=== PATIENT | female | born 1995 | race Caucasian/White ===

== ENCOUNTER 2023-07-08 15:55 | Emergency (ER) | payer BC, SELFPAY ==
[2023-07-08 16:06] VITALS: BP 154/86; PULSE 99; RESP 20; TEMP 37.7; O2SAT 100
--- NOTE | 2023-07-08 16:40 | ED.URI ---
HPI - URI/Sore Throat General Chief Complaint: Upper Respiratory Infection Stated Complaint: Sore Throat Time Seen by Provider: 07/08/23 16:45 History of Present Illness HPI Narrative: 28 y/o female presented for c/o sore throat. Onset yesterday. denies any associated symptoms. She is not taking anything for symptoms. Related Data Allergies Allergy/AdvReac Type Severity Reaction Status Date / Time No Known Allergies Allergy Verified 07/08/23 16:51 Review of Systems Review of Systems: CONSTITUTIONAL: Denies body aches, fever, chills, or sweats. EYES: Denies visual changes, redness, or discharge. ENT: reports sore throat Denies rhinorrhea, congestion, or otalgia. CARDIOVASCULAR: Denies chest pain, palpitations, or edema. RESPIRATORY: Denies dyspnea. GASTROINTESTINAL: Denies abdominal pain, nausea, vomiting, or diarrhea. SKIN: Denies rash, itching, or wounds. MUSCULOSKELETAL: Denies back pain, joint pain, or myalgia. NEUROLOGIC: Denies headache PMF Past Medical History Medical History (Updated 07/08/23 @ 16:53 by Debra Donaldson, CONTR[employer]STRU[employer]) No pertinent past medical history Exam Narrative: GENERAL: mildly Ill-appearing, no acute distress. EYES: conjunctivae clear ENT: Mucous membranes moist. TM pearly figueroa with normal light reflex bilaterally; no tragal tenderness. Oropharynx erythematous Tonsils enlarged 2+ with exudate. No drooling, no hoarseness, no trismus, uvula midline. No tripod positioning, hot potato voice, or soft palate swelling. NECK: Supple. No lymphadenopathy CHEST: Clear to auscultation, breath sounds equal. No respiratory distress, speaks in full sentences. HEART: Regular rate and rhythm. No murmur heard. SKIN: Warm, dry, no rash. NEURO: Alert and oriented x3. Course Course Emergency Course: Patient is aware of diagnosis, understands and agrees to treatment plan. Anticipatory guidance given. Patient agrees to follow-up as directed and is aware of reasons to seek care at the emergency department. Portions of this record may have been created with voice recognition software Level of Care: Express Care Visit Vital Signs Vital signs: Vital Signs Temperature 99.8 F H 07/08/23 16:06 Pulse Rate 99 07/08/23 16:06 Respiratory Rate 20 07/08/23 16:06 Blood Pressure 154/86 H 07/08/23 16:06 Pulse Oximetry 100 07/08/23 16:06 Oxygen Delivery Room Air 07/08/23 16:06 Temperature 99.8 F H 07/08/23 16:06 Pulse Rate 99 07/08/23 16:06 Respiratory Rate 20 07/08/23 16:06 Blood Pressure 154/86 H 07/08/23 16:06 Pulse Oximetry 100 07/08/23 16:06 Oxygen Delivery Room Air 07/08/23 16:06 MDM - URI/Sore Throat MDM Narrative Medical decision making narrative: Neg strep result reviewed with pt. Will treat for strep based on PE and CC. Advise supportive treatments. Patient is appropriate for outpatient treatment and follow-up. Differential Diagnosis Differential diagnosis: Likely upper respiratory infection, viral infection and pharyngitis Lab Data Labs: Strep Screen Presumptive Negative *(Reference Range: Negative)* Discharge Plan Discharge Clinical Impression: Pharyngitis Patient Disposition: Home, Self-Care Condition: Stable Instructions: Antibiotic Form, Strep Throat (ED) Additional Instructions: - Take the antibiotic as directed. Fever and sore throat typically resolve within one to three days. Most patients can return to work, school, or daycare after 12 to 24 hours of antibiotic therapy, provided you are fever free and otherwise well. -Eat and drink things that are easy to swallow, like soft foods, cool liquids, tea with honey, or popsicles . -Salt water gargles and/or may use topical anesthetic ( Chloraseptic spray) or lozenges to relieve dryness or throat pain -Alternate Tylenol and ibuprofen as needed for pain and fever as directed. -Frequent hand washing or lundy
== END 2023-07-08 16:55 | disposition home or self-care (01) ==
PROVIDERS: Emergency Provider Nurse Practitioner Family
DX: J02.9 Acute pharyngitis, unspecified (principal); Z20.822 Contact with and (suspected) exposure to COVID-19
CPT/HCPCS: 87081; 87426; 87804; 87880; 99213; G0463

== ENCOUNTER 2024-08-20 00:35 | Inpatient (IN) | payer BC, SELFPAY ==
[2024-08-20] VITALS (182 sets, daily range): BP systolic 95–166; BP diastolic 62–97; PULSE 83–157; RESP 16–18; TEMP 35.7–37.6; O2SAT 89–100; BMI 50.4
[2024-08-20] MEDS: LACTATED RINGERS 1,000 ML 125 ML IV CONT (01:10)
[2024-08-20] MEDS: ONDANSETRON INJ 4 MG/2 ML VIAL IV PUSH (01:11)
--- NOTE | 2024-08-20 01:14 | LDADM ---
This patient, Radhika Cameron, was admitted to Labor/Delivery/Recovery 105 on 08/20/24 at 00:35. Plans for labor, pain management and were discussed with patient. Patient/family oriented to hospital policies and general routines including ID bracelet, bed and alarms, visiting hours, pain management, procedures, bathroom and other care routines, personal items, smoking policy, room service/diet and guest tray routines, infant security routines, and visiting hours. Patient/Family are encouraged to report perceived risks to care and to ask questions if they do not understand what they are told or what they should do. See OBIX for further documentation.
[2024-08-20 01:15] LABS: Basophils Absolute Auto 0.1 K/mm3 (0.0-0.1); Basophils Percent Auto 0.4 % (0.2-1.2); Eosinophils Absolute Auto 0.1 K/mm3 (0-0.3); Eosinophils Percent Auto 0.8 % (0-4.4); Hematocrit 33.2 % (37.0-47.0); Hemoglobin 11.5 g/dL (12.0-15.0); Immature Granulocyte Absolute 0.07 K/mm3 (0.00-0.031); Immature Granulocyte Percent A 0.5 % (0-0.5); Lymphocytes Absolute Auto 2.23 K/mm3 (0.9-3.2); Lymphocytes Percent Auto 16.6 % (18.3-44.2); Mean Corpuscular HGB Conc 34.6 g/dl (32-36); Mean Corpuscular Hemoglobin 28.3 pg (26-34); Mean Corpuscular Volume 81.6 fl (80-100); Mean Platelet Volume 10.3 fl (7.4-10.4); Monocytes Absolute Auto 0.9 K/mm3 (0.1-0.6); Monocytes Percent Auto 6.9 % (2.6-8.5); Neutrophils Percent Auto 74.8 % (45.5-73.1); Platelet Count Result 266 k/mm3 (150-375); Red Blood Count 4.07 M/mm3 (4.2-5.4); Red Cell Distribution Width 14.3 % (11.5-14.5); White Blood Count 13.4 K/mm3 (4.5-10.0)
--- NOTE | 2024-08-20 01:49 | WPDANESEPP ---
Anes - Eval Pre Procedure Procedure: Labor Epidura Date/Time: 08/20/24 01:49 Surgeon: Laura Preop Diagnosis: Labor Pain Pre Op Diagnosis: SROM Patient Data Age: 29 Gender: F Height: 1.68 m Weight: 141.8 kg Last Vital Signs Temp 36.5 C 08/20/24 00:56 Pulse 113 H 08/20/24 01:31 BP 144/97 H 08/20/24 01:31 Pulse Ox 99 08/20/24 01:48 O2 Del Method Room Air 08/20/24 01:12 Allergies Allergy/AdvReac Type Severity Reaction Status Date / Time No Known Allergies Allergy Verified 07/31/24 14:35 Laboratory Tests 08/20/24 01:09 WBC 13.4 H K/mm3 (4.5-10.0) RBC 4.07 L M/mm3 (4.2-5.4) Hgb 11.5 L g/dL (12.0-15.0) Hct 33.2 L % (37.0-47.0) MCV 81.6 fl (80-100) MCH 28.3 pg (26-34) MCHC 34.6 g/dl (32-36) RDW 14.3 % (11.5-14.5) Plt Count 266 k/mm3 (150-375) MPV 10.3 fl (7.4-10.4) Immature Gran % (Auto) 0.5 % (0-0.5) Neut % (Auto) 74.8 H % (45.5-73.1) Lymph % (Auto) 16.6 L % (18.3-44.2) [place] % (Auto) 6.9 % (2.6-8.5) Eos % (Auto) 0.8 % (0-4.4) Baso % (Auto) 0.4 % (0.2-1.2) Lymph # (Auto) 2.23 K/mm3 (0.9-3.2) [place] # (Auto) 0.9 H K/mm3 (0.1-0.6) Eos # (Auto) 0.1 K/mm3 (0-0.3) Baso # (Auto) 0.1 K/mm3 (0.0-0.1) Abs Immat Gran (auto) 0.07 H K/mm3 (0.00-0.031) Absolute Neuts (auto) 10.0 H K/mm3 (1.3-6.7) Absolute Nucleated RBC 0.000 K/mm3 (0.0-0.012) Nucleated RBC % 0.0 % (0.0-0.2) HIV 1&2 Ab/P24 Ag 4thGn Pending : gestational age (, SHAD 08/25/24) Patient hx anesthesia problems: none Family hx anesthesia problems: none Results Review: All pre-operative results and documents have been reviewed as part of the pre-operative evaluation. FOR[facility], [facility] Past Medical History Medical History No pertinent past medical history Family History Family History Father Diabetes mellitus Social History Social History Smoking status: Never smoker Second hand tobacco smoke exposure: No Substance use: never Do You Feel Safe in your Home?: Yes Lack of Transportation: No Lack of Food: Never True Current Housing: I Have Housing Concerned About Future Housing: No Difficulty Paying Gas/Electric Bills: No Difficulty Paying for Meds: No Currently Unemployed: No Education: Bachelor's Degree Difficulty w/ Childcare or Family Care: No Spiritual care concerns: No Exam Day of Procedure 08/20/24 01:49 Patient weight: normal Heart: regular rate and rhythm Lungs: normal air movement Airway: Mallampati scale class II Neurological: alert and oriented
[2024-08-20 02:06] LABS: HIV 1/2 Ab P24 Ag Result Negative (Negative)
[2024-08-20 02:12] LABS: Syphilis IgG/IgM Antibody Negative (Negative)
[2024-08-20] MEDS: OXYTOCIN 30 UNITS/NS 500 ML 30 UNITS/500 ML BAG IV CONT (05:52)
--- NOTE | 2024-08-20 08:51 | WPDOBADMIT ---
Obstetrics - Admit Note Admission Note: record reviewed. Pertinent additions to the history and/or any subsequent changes in the physical findings that are not consistent with the expected course of the were found. Additions to the history and/or subsequent changes in the physical findings follow. Patient arrived with SROM in labor at 5 cm. Progressed well to complete then contractions spaced out so pitocin began . Once contractions regular again, patient pushing very effective. reviewed and BP elevated since 7 week visit. Likely CHN vs gestational HTN. No other complications noted.
--- NOTE | 2024-08-20 08:53 | P.PCNOB_ITS ---
OB - Vaginal Delivery Note Procedure Delivery date: 08/20/24 Events: Gestational Hypertension (vs CHTN) Delivery augmentation: Pitocin Delivery monitor: External FHT and External Uterine Route of delivery: Episiotomy description: None Laceration Description: Perineal - 2nd Degree (deep vaginal near cervix) Delivery repair: vicryl (3-0) Specimen: No Quantitative Blood Loss (ml): 800 Anesthesia type: Epidural Disposition: Floor Complications: No immediate complications Narrative: Brisk bleeding prior to delivery with hymenal laceration and perineal prior to delivery. Bleeding increased post delivery from deep vaginal laceration. [place] Baby Date of : 08/20/24 Gestational Age by Date: 39 (39 2/7) Infant gender: Male presentation: vertex position: Right Occiput Anterior Placenta delivery description: Spontaneous Cord Vessel Description: Nuchal Cord score one minute: 8 score five minutes: 9
--- NOTE | 2024-08-20 08:58 | P.DS_ITS ---
DS: Admitting Diagnosis Discharge Date 08/22/2024 <Janusz Mcintosh MD - Last Filed: 08/22/24 07:48> Admitting Diagnosis IUP 39 2/7 Gestational HTN vs CHTN <Sushma Knight MD - Last Filed: 08/22/24 07:58> DS: Discharge Diagnosis Discharge Diagnosis (1) (normal spontaneous vaginal delivery): Code(s): O80 - Encounter for full-term uncomplicated delivery <Sushma Knight MD - Last Filed: 08/22/24 07:58> Status: Acute <Sushma Knight MD - Last Filed: 08/22/24 07:58> (2) Hypertension affecting : Code(s): O16.9 - Unspecified maternal hypertension, unspecified trimester <Sushma Knight MD - Last Filed: 08/22/24 07:58> Status: Acute <Sushma Knight MD - Last Filed: 08/22/24 07:58> OB - DS: Summary OB Procedures : Ultrasound <Sushma Knight MD - Last Filed: 08/22/24 07:58> OB Procedures Intrapartum: Spontaneous Vag Delivery <Sushma Knight MD - Last Filed: 08/22/24 07:58> OB Procedures: : None <Sushma Knight MD - Last Filed: 08/22/24 07:58> Peripartum Data Delivery Method: Natural Vaginal <Sushma Knight MD - Last Filed: 08/22/24 07:58> Laceration Description: Perineal - 2nd Degree (deep vaginal near cervix) <Sushma Knight MD - Last Filed: 08/22/24 07:58> Episiotomy description: None <Sushma Knight MD - Last Filed: 08/22/24 07:58> complications: none <Sushma Knight MD - Last Filed: 08/22/24 07:58> Status at Discharge Functional status at discharge: independent ambulation <Sushma Knight MD - Last Filed: 08/22/24 07:58> Overall status at discharge: patient is progressing back to baseline <Sushma Knight MD - Last Filed: 08/22/24 07:58> Time Spent with Patient Time attestation: Total time spent providing and/or coordinating discharge services: <Sushma Knight MD - Last Filed: 08/22/24 07:58> DS: Data Data Completed and Pending Labs on day of discharge: Labs from last 24 hours 08/20/24 01:09 WBC 13.4 H RBC 4.07 L Hgb 11.5 L Hct 33.2 L MCV 81.6 MCH 28.3 MCHC 34.6 RDW 14.3 Plt Count 266 MPV 10.3 Immature Gran % (Auto) 0.5 Neut % (Auto) 74.8 H Lymph % (Auto) 16.6 L [place] % (Auto) 6.9 Eos % (Auto) 0.8 Baso % (Auto) 0.4 Lymph # (Auto) 2.23 [place] # (Auto) 0.9 H Eos # (Auto) 0.1 Baso # (Auto) 0.1 Abs Immat Gran (auto) 0.07 H Absolute Neuts (auto) 10.0 H Absolute Nucleated RBC 0.000 Nucleated RBC % 0.0 Syphilis IgG/IgM Ab Negative HIV 1&2 Ab/P24 Ag 4thGn Negative Blood Type O Positive Antibody Screen Negative <Sushma Knight MD - Last Filed: 08/22/24 07:58> Discharge Plan Discharge Attending physician on discharge: Janusz Goldman <Sushma Knight MD - Last Filed: 08/22/24 07:58> Janusz Goldman <Janusz Mcintosh MD - Last Filed: 08/22/24 07:48> Discharging Clinician: Janusz Goldman <Sushma Knight MD - Last Filed: 08/22/24 07:58> Janusz Goldman <Janusz Mcintosh MD - Last Filed: 08/22/24 07:48> Anticipated Discharge Date/Time: 08/22/24 09:01 <Sushma Knight MD - Last Filed: 08/22/24 07:58> Patient Disposition: Home, Self-Care <Sushma Knight MD - Last Filed: 08/22/24 07:58> Activity: no shower and pelvic rest <Sushma Knight MD - Last Filed: 08/22/24 07:58> no shower and pelvic rest <Janusz Mcintosh MD - Last Filed: 08/22/24 07:48> Diet: regular <Sushma Knight MD - Last Filed: 08/22/24 07:58> regular <Janusz Mcintosh MD - Last Filed: 08/22/24 07:48> Patient Instructions: Antibiotic Form <Sushma Knight MD - Last Filed: 08/22/24 07:58> Patient Language: Citizen Of [place] <Sushma Knight MD - Last Filed: 08/22/24 07:58> Stand Alone Forms: General Discharge Information <Sushma Knight MD - Last Filed: 08/22/24 07:58> Follow-up/Referrals: Janusz Goldman MD [Physician] - <Sushma Knight MD - Last Filed: 08/22/24 07:58> Date of admission: 08/20/24 00:35 <Sushma Knight MD - Last Filed: 08/22/24 07:58> Primary Care Provider: UNKNOWN,DOCTOR <Sushma Knight MD - Last Filed: 08/22/24 07:58> Admitting Provider: Janusz Goldman <Sushma Knight MD - Last Filed: 08/22/24 07:58> Attending physician on admission: Janusz Goldman <Sushma Knight MD - Last Filed: 08/22/24 07:58> Condition: Stable <Sushma Knight MD - Last Filed: 08/22/24 07:58>
[2024-08-20] MEDS: OXYTOCIN 30 UNITS/NS 500 ML 30 UNITS/500 ML BAG 125 UNITS IV CONT (09:08)
[2024-08-20] MEDS: LACTATED RINGERS 1,000 ML 999 ML IV CONT (10:29)
[2024-08-20] MEDS: miSOPROStol 200 MCG TABLET 800 MCG RECTAL (10:31)
[2024-08-20] MEDS: TRANEXAMIC ACID 1,000MG/ISO100 1,000 MG/100 ML BAG 200 MG IVPB (10:42)
[2024-08-20] MEDS: IBUPROFEN 600 MG TABLET PO (15:34)
[2024-08-20] MEDS: DOCUSATE SODIUM 100 MG CAPSULE PO (15:35)
--- NOTE | 2024-08-20 16:45 | OBPPTRN ---
Patient and baby transferred to post room #288 via ( wheelchair/crib). Support person present. Oriented to unit, room, information board, rooming in, admission packet and security measures. Patient verbalizes understanding.
[2024-08-21 03:10] VITALS: BP 95/61; PULSE 105; RESP 18; TEMP 36.3; O2SAT 100
[2024-08-21] MEDS: ACETAMINOPHEN 325 MG TABLET 650 MG PO ×2 (03:23→15:55)
[2024-08-21] MEDS: IBUPROFEN 600 MG TABLET PO ×2 (03:23→15:54)
[2024-08-21 05:53] LABS: Hematocrit 24.5 % (37.0-47.0); Hemoglobin 7.9 g/dL (12.0-15.0)
[2024-08-21] MEDS: DOCUSATE SODIUM 100 MG CAPSULE PO ×2 (07:07→15:54)
[2024-08-21] MEDS: POLYSACCHARIDE IRON COMPLEX 150 MG CAPSULE PO ×2 (07:07→15:55)
[2024-08-21] MEDS: MEASLES,MUMPS,RUBELLA VACCINE 0.5 ML VIAL (07:10)
[2024-08-21] MEDS: MULTIVIT/MIN/PREN/FOL AC/IRON TABLET 1 TAB PO (07:10)
--- NOTE | 2024-08-21 07:36 | P.PNOB_ITS ---
OB - PN: Subj Subjective Date/time seen: 08/21/24 07:36 Patient comments: no complaints and pain well controlled feeding status: exclusively breast feeding OB - PN: Obj Data Labs 08/21/24 04:57 Labs: Laboratory Results - last 24 hr 08/21/24 04:57 Hgb 7.9 L D Hct 24.5 L OB - PN A/P Assessment and Plan (1) (normal spontaneous vaginal delivery): Code(s): O80 - Encounter for full-term uncomplicated delivery Status: Acute (2) Hypertension affecting : Code(s): O16.9 - Unspecified maternal hypertension, unspecified trimester Status: Acute Plan Comments: routine care Time Spent With Patient Time: Total time spent is greater than 50% in coordination of care (as documented) at patient's floor/unit and/or counseling patient: Exam 2 Narrative: GENERAL: mildly Ill-appearing, no acute distress. EYES: conjunctivae clear ENT: Mucous membranes moist. TM pearly figueroa with normal light reflex bilaterally; no tragal tenderness. Oropharynx erythematous Tonsils enlarged 2+ with exudate. No drooling, no hoarseness, no trismus, uvula midline. No tripod positioning, hot potato voice, or soft palate swelling. NECK: Supple. No lymphadenopathy CHEST: Clear to auscultation, breath sounds equal. No respiratory distress, speaks in full sentences. HEART: Regular rate and rhythm. No murmur heard. SKIN: Warm, dry, no rash. NEURO: Alert and oriented x3. Const: General: cooperative, healthy appearing and comfortable O rientation/consciousness: oriented to person, oriented to place and oriented to time HENMT: Head: normal to inspection Resp: Effort & Inspection: normal respiratory effort Cardio: Rate: regular rate Rhythm: regular rhythm Heart sounds: S1 normal heart sound present and S2 normal heart sound present GI: Inspection: normal to inspection
[2024-08-21 08:10] VITALS: BP 110/60; PULSE 95; RESP 18; TEMP 36.3; O2SAT 98
[2024-08-21 12:54] VITALS: BP 110/75; PULSE 94; RESP 16; TEMP 36.8; O2SAT 98
--- NOTE | 2024-08-21 14:50 | WPDANLDPN2 ---
Anes-Prog Note L&D Date/Time: 08/21/24 14:50 Comfortable throughout: labor and delivery Neuraxial method: epidural Epidural/Spinal procedure site: clean & non-tender Neuro status: Neuro function grossly intact. Cardiovascular status: normal Respiratory status: normal Airway patency: baseline Mental status: baseline Post-Op hydration status: normal Vital Signs: Last Vital Signs Temp 98.2 F 08/21/24 12:54 Pulse 94 08/21/24 12:54 Resp 16 08/21/24 12:54 BP 110/75 08/21/24 12:54 Pulse Ox 98 08/21/24 12:54 O2 Del Method Room Air 08/21/24 08:00 Pain score (VAS): 0/10 I/O: Intake & Output 08/20/24 08/21/24 08/21/24 23:59 07:59 15:59 Intake Total 500 Output Total 200 Balance 300 Post-procedural complaints: none Patient feedback: Patient satisfied with anesthetic care.
[2024-08-21 16:00] VITALS: BP 117/76; PULSE 101
--- NOTE | 2024-08-21 18:29 | PC.NURSE ---
1300. Met with patient to assess and discuss needs related to feeding. Mother states it is her intention to combo feed. Mother with large QBL and gestational HTN. Mom also using nipple shield due to somewhat flat nipples. There is currently an order for mom to supplement after each feeding due to baby being dori positive. Mom is using her Mom Cozi pump for pumping. Observed mother latching infant to the right breast in cross cradle position. Infant was able to maintain an appropriate latch with the use of a nipple shield. Mother declines nipple pain/discomfort throughout feeding. Encouraged mother to breastfeed 8-12 times in 24 hours (approximately every 2-3 hours), watching for early feeding cues. If infant is sleepy, unwrap and place baby skin to skin. Discussed signs that is effectively , i.e. sufficient voids and stools, jaundice within normal limits, <10% weight loss from . Mother educated on milk production, supply and demand, and expectations for in the immediate period. Encouraged feeding on demand and feeding durations of 15 minutes or greater. Discussed breast/nipple care with good hand hygiene, signs of a correct latch, listening for infant swallows and documenting feedings on the feeding sheet. Mother instructed to call for assistance if infant will not feed every 3 hours, if there is discomfort with , or if mother has any other questions or concerns. resources provided including the Mom and Baby Guide and name/number on communication board. Mother verbalized understanding. Updated patient?s primary RN with education provided.?
[2024-08-21 18:52] VITALS: BP 118/64; PULSE 109; RESP 16; TEMP 36.3; O2SAT 99
[2024-08-22] MEDS: IBUPROFEN 600 MG TABLET PO ×2 (00:46→08:33)
[2024-08-22] MEDS: ACETAMINOPHEN 325 MG TABLET 650 MG PO ×2 (00:46→08:33)
[2024-08-22 05:18] LABS: Hematocrit 21.6 % (37.0-47.0)
[2024-08-22 05:20] LABS: Hemoglobin 6.9 g/dL (12.0-15.0)
--- NOTE | 2024-08-22 07:48 | P.PNOB_ITS ---
OB - PN: Subj Subjective Date/time seen: 08/22/24 07:48 Patient comments: no complaints, pain well controlled and tolerating diet [place] baby status: doing well OB - PN: Obj Data Labs 08/22/24 04:51 Labs: Laboratory Results - last 24 hr 08/22/24 04:51 Hgb 6.9 L* Hct 21.6 L OB - PN A/P Assessment and Plan (1) (normal spontaneous vaginal delivery): Code(s): O80 - Encounter for full-term uncomplicated delivery Status: Acute (2) Hypertension affecting : Code(s): O16.9 - Unspecified maternal hypertension, unspecified trimester Status: Acute Plan home Time Spent With Patient Time: Total time spent is greater than 50% in coordination of care (as documented) at patient's floor/unit and/or counseling patient: Review of Systems 2 Review of Systems: CONSTITUTIONAL: Denies body aches, fever, chills, or sweats. EYES: Denies visual changes, redness, or discharge. ENT: reports sore throat Denies rhinorrhea, congestion, or otalgia. CARDIOVASCULAR: Denies chest pain, palpitations, or edema. RESPIRATORY: Denies dyspnea. GASTROINTESTINAL: Denies abdominal pain, nausea, vomiting, or diarrhea. SKIN: Denies rash, itching, or wounds. MUSCULOSKELETAL: Denies back pain, joint pain, or myalgia. NEUROLOGIC: Denies headache Exam 2 Const: General: cooperative, healthy appearing and comfortable Resp: Effort & Inspection: normal respiratory effort Cardio: Rate: regular rate Rhythm: regular rhythm Heart sounds: S1 normal heart sound present and S2 normal heart sound present GI: Inspection: normal to inspection
[2024-08-22 07:52] VITALS: BP 121/68; PULSE 93; RESP 19; TEMP 36.6; O2SAT 98
[2024-08-22] MEDS: MULTIVIT/MIN/PREN/FOL AC/IRON TABLET 1 TAB PO (08:33)
[2024-08-22] MEDS: POLYSACCHARIDE IRON COMPLEX 150 MG CAPSULE PO (08:33)
[2024-08-22] MEDS: DOCUSATE SODIUM 100 MG CAPSULE PO (08:33)
--- NOTE | 2024-08-22 09:57 | PC.NURSE ---
Patient viewed the discharge video Mother & Baby Care, The First Two Weeks . Patient was given the opportunity and encouraged to ask questions. Patient verbalized understanding of information shared and has been given the mother/baby guide for home reference.
--- NOTE | 2024-08-22 10:26 | PC.NURSE ---
0815: Introductions were made. Mother states that overnight infant wasn't nursing the greatest and was pushing away when at the breast. Parents are supplementing infant after feedings and will continue supplementing per mother. Mother has a breast pump at home and will begin pumping at home upon discharge. Educated mother that when infant does not nurse effectively at the breast, she should pump at that time. Mother states understanding.
[2024-08-24 08:26] VITALS: BP 136/88; PULSE 84; RESP 16; TEMP 36.4; O2SAT 100
== END 2024-08-22 11:08 | disposition home or self-care (01) | DRG 807 ==
LOC: ANHLDR 09:02 → ANHOB2 12:54
PROVIDERS: Admitting Provider Obstetrics & Gynecology Gynecology; Visit Provider Obstetrics & Gynecology
DX: O13.4 Gestational [pregnancy-induced] hypertension without significant proteinuria, complicating childbirth (principal); Z37.0 Single live birth; O69.81X0 Labor and delivery complicated by cord around neck, without compression, not applicable or unspecified; O70.1 Second degree perineal laceration during delivery; Z3A.39 39 weeks gestation of pregnancy
CPT/HCPCS: 36415; 85014; 85018; 85025; 86593; 86703; 86850; 86900; 86901; 90710; A9270; G0432; J2405; J2590; J2795; J7120

== ENCOUNTER 2024-08-24 21:56 | Outpatient (CLI) | payer BC, SELFPAY ==
[2024-08-24] VITALS (27 sets, daily range): BP systolic 125–127; BP diastolic 67–81; PULSE 97–124; RESP 16–18; TEMP 36.6; O2SAT 95–100; BMI 49.8
--- NOTE | ~2024-08-24 | XR_ITS ---
CHEST RADIOGRAPH CLINICAL HISTORY: SOB, chest pain . COMPARISON: None available TECHNIQUE: Single portable view of the chest. FINDINGS The cardiomediastinal silhouette is unremarkable. The lungs are clear. Visualized osseous structures and soft tissues are unremarkable. IMPRESSION: No focal infiltrate or effusion. Reviewed, dictated and finalized at location A.
--- NOTE | 2024-08-24 21:56 | PC.NURSE ---
Pt arrives to unit with shortness of breath and chest pain, pt reports having had a headache that is resolved after taking ibuprofen.
--- NOTE | 2024-08-24 22:45 | PC.NURSE ---
Bilateral clear lung sounds, heart rate and rhythm regular, no pain or tenderness in calves with feet flexion, vital signs stable, and non-pitting dependent edema bilateral feet
[2024-08-24 23:01] LABS: Basophils Absolute Auto 0.1 K/mm3 (0.0-0.1); Basophils Percent Auto 0.4 % (0.2-1.2); Eosinophils Absolute Auto 0.3 K/mm3 (0-0.3); Eosinophils Percent Auto 2.3 % (0-4.4); Hematocrit 23.4 % (37.0-47.0); Hemoglobin 7.6 g/dL (12.0-15.0); Immature Granulocyte Absolute 0.12 K/mm3 (0.00-0.031); Lymphocytes Absolute Auto 2.02 K/mm3 (0.9-3.2); Lymphocytes Percent Auto 16.8 % (18.3-44.2); Mean Corpuscular HGB Conc 32.5 g/dl (32-36); Mean Corpuscular Hemoglobin 28.4 pg (26-34); Mean Corpuscular Volume 87.3 fl (80-100); Mean Platelet Volume 9.7 fl (7.4-10.4); Monocytes Absolute Auto 0.8 K/mm3 (0.1-0.6); Monocytes Percent Auto 6.2 % (2.6-8.5); Neutrophils Absolute Auto 8.8 K/mm3 (1.3-6.7); Neutrophils Percent Auto 73.3 % (45.5-73.1); Nucleated Red Blood Cells Perc 0.2 % (0.0-0.2); Platelet Count Result 332 k/mm3 (150-375); Red Blood Count 2.68 M/mm3 (4.2-5.4); Red Cell Distribution Width 15.2 % (11.5-14.5)
[2024-08-24 23:11] LABS: Alanine Aminotransferase 22 U/L (6-35); Albumin Level 3.1 g/dL (3.5-5.1); Alkaline Phosphatase 95 U/L (38-126); Anion Gap 6 mmol/L (4-12); Aspartate Amino Transferase 23 U/L (14-36); Bilirubin,Total 0.3 mg/dL (0.2-1.3); Blood Urea Nitrogen 10 mg/dL (7-17); Calcium 8.8 mg/dL (8.4-10.2); Carbon Dioxide 27 mmol/L (22-30); Chloride 105 mmol/L (98-107); Estimated CRCL calculation 144 ml/min; Estimated Glomerular Filt Rate > 60; Glucose 104 mg/dL (65-110); Potassium 4.2 mmol/L (3.4-5.0); Sodium 138 mmol/L (137-145); Uric Acid 6.1 mg/dL (2.5-7.5)
--- NOTE | 2024-08-24 23:17 | PC.NURSE ---
Addendum entered by Lucia Piña RN 08/25/24 04:58: Orders at this time received for a chest X-ray. Original Note: Called Dr. Arlyn Mcintosh, update on pt, shortness of breath, dull ache pain under left breast 3 out of 10, blood pressure, oxygen saturation 98-100%, and labs. No new orders at this time.
--- NOTE | 2024-08-24 23:23 | PC.NURSE ---
Respiratory at bedside for EKG.
--- NOTE | 2024-08-24 23:35 | PC.NURSE ---
Dr. Robertson, ED physician reviewed EKG results.
--- NOTE | 2024-08-24 23:44 | PC.NURSE ---
Chest x-ray performed at bedside.
[2024-08-25] VITALS (23 sets, daily range): BP systolic 129; BP diastolic 80; PULSE 79–107; O2SAT 93–100
--- NOTE | 2024-08-25 00:44 | PC.NURSE ---
Dr. Arlyn Mcintosh called, update on EKG and chest X-ray results. Orders received to discharge pt with instructions to call the office to make an appointment for next week, when to return to the unit, and proceed to the ED with intensifying symptoms.
--- NOTE | 2024-08-25 02:10 | PC.NURSE ---
Pt discharged with instructions to call the office and make an appointment for next week, when to return to the unit, and proceed to the ED with intensifying symptoms.
--- NOTE | 2024-08-25 05:56 | PM.OBTRLD ---
OB - Triage/Final Diagnosis Visit Information Date of evaluation: 08/25/24 Reason for evaluation: other (swelling) Comments/Additional reasons for admission: I have assessed the risk for this patient, Radhika Cameron, and determined that she would benefit from observation care. Evaluation Laboratory results: Laboratory Tests 08/24/24 22:34 WBC 12.0 H RBC 2.68 L Hgb 7.6 L Hct 23.4 L MCV 87.3 D MCH 28.4 MCHC 32.5 RDW 15.2 H Plt Count 332 MPV 9.7 Immature Gran % (Auto) 1.0 H Neut % (Auto) 73.3 H Lymph % (Auto) 16.8 L [place] % (Auto) 6.2 Eos % (Auto) 2.3 Baso % (Auto) 0.4 Lymph # (Auto) 2.02 [place] # (Auto) 0.8 H Eos # (Auto) 0.3 Baso # (Auto) 0.1 Abs Immat Gran (auto) 0.12 H Absolute Neuts (auto) 8.8 H Absolute Nucleated RBC 0.020 H Nucleated RBC % 0.2 Sodium 138 Potassium 4.2 Chloride 105 Carbon Dioxide 27 Anion Gap 6 BUN 10 Creatinine 0.71 Estim Creat Clear Calc 144 Estimated GFR > 60 Glucose 104 Uric Acid 6.1 Calcium 8.8 Total Bilirubin 0.3 AST 23 ALT 22 Alkaline Phosphatase 95 Total Protein 6.0 L Albumin 3.1 L Vital signs: Vital Signs - 24 hr 08/24/24 22:14 08/24/24 22:19 08/24/24 22:24 Temperature Pulse Rate Respiratory Rate Blood Pressure Blood Pressure [Right Arm] Pulse Oximetry 100 99 99 08/24/24 22:33 08/24/24 22:38 08/24/24 22:40 Temperature 97.9 F Pulse Rate Respiratory Rate Blood Pressure Blood Pressure [Right Arm] Pulse Oximetry 98 99 08/24/24 22:43 08/24/24 22:45 08/24/24 22:48 Temperature Pulse Rate 102 H Respiratory Rate 16 Blood Pressure 126/67 Blood Pressure [Right Arm] Pulse Oximetry 98 99 08/24/24 22:50 08/24/24 22:53 08/24/24 22:58 Temperature Pulse Rate 104 H Respiratory Rate Blood Pressure Blood Pressure [Right Arm] 126/67 Pulse Oximetry 100 99 08/24/24 23:00 08/24/24 23:03 08/24/24 23:08 Temperature Pulse Rate 101 H Respiratory Rate Blood Pressure 125/76 Blood Pressure [Right Arm] Pulse Oximetry 99 98 08/24/24 23:13 08/24/24 23:15 08/24/24 23:18 Temperature Pulse Rate 103 H Respiratory Rate Blood Pressure 125/81 Blood Pressure [Right Arm] Pulse Oximetry 100 98 08/24/24 23:23 08/24/24 23:23 08/24/24 23:28 Temperature Pulse Rate Respiratory Rate Blood Pressure Blood Pressure [Right Arm] Pulse Oximetry 99 98 97 08/24/24 23:30 08/24/24 23:33 08/24/24 23:38 Temperature Pulse Rate 102 H Respiratory Rate Blood Pressure 127/75 Blood Pressure [Right Arm] Pulse Oximetry 98 98 08/24/24 23:43 08/24/24 23:45 08/24/24 23:48 Temperature Pulse Rate 102 H Respiratory Rate 18 Blood Pressure 126/79 Blood Pressure [Right Arm] Pulse Oximetry 97 99 08/24/24 23:56 08/25/24 00:01 08/25/24 00:06 Temperature Pulse Rate 97 Respiratory Rate Blood Pressure 129/80 Blood Pressure [Right Arm] Pulse Oximetry 95 98 99 08/25/24 00:11 08/25/24 00:16 08/25/24 00:21 Temperature Pulse Rate Respiratory Rate Blood Pressure Blood Pressure [Right Arm] Pulse Oximetry 100 99 99 08/25/24 00:26 08/25/24 00:31 08/25/24 00:36 Temperature Pulse Rate Respiratory Rate Blood Pressure Blood Pressure [Right Arm] Pulse Oximetry 98 97 96 08/25/24 00:41 08/25/24 00:46 08/25/24 00:51 Temperature Pulse Rate Respiratory Rate Blood Pressure Blood Pressure [Right Arm] Pulse Oximetry 95 94 96 08/25/24 00:56 08/25/24 01:01 08/25/24 01:06 Temperature Pulse Rate Respiratory Rate Blood Pressure Blood Pressure [Right Arm] Pulse Oximetry 93 93 93 08/25/24 01:11 08/25/24 01:16 08/25/24 01:21 Temperature Pulse Rate Respiratory Rate Blood Pressure Blood Pressure [Right Arm] Pulse Oximetry 98 94 94 08/25/24 01:26 08/25/24 01:31 08/25/24 01:36 Temperature Pulse Rate Respiratory Rate Blood Pressure Blood Pressure [Right Arm] Pulse Oximetry 94 96 97 08/25/24 01:41 08/25/24 01:46 08/25/24 01:51 Temperature Pulse Rate Respiratory Rate Blood Pressure Blood Pressure [Right Arm] Pulse Oximetry 96 97 96
--- NOTE | 2024-08-25 11:15 | ECG_ITS ---
Test Date: 2024-08-24 23:27:16 Measurements Intervals [place] Rate: 99 P: 44 [place]: 154 QRS: 11 QRSD: 89 T: 26 QT: 351 QTc: 451 Interpretive Statements SINUS RHYTHM LOW QRS VOLTAGE IN PRECORDIAL LEADS [QRS DEFLECTION < 1.0 mV IN CHEST LEADS] POSSIBLE RIGHT VENTRICULAR CONDUCTION DELAY [RSR (QR) IN V1/V2] POSSIBLE ANTERIOR MYOCARDIAL INFARCTION , PROBABLY OLD [30 ms Q WAVE IN V3/V4, OR R < 0.2 mV IN V4] No previous ECG available for comparison Electronically Signed On 08-25-2024 18:29:15 CDT by Rosio Aguilera M.D.
== END 2024-08-25 02:10 | disposition home or self-care (01) ==
LOC: ANHOBOP 22:00 → ANHOBPP 08-25 05:05
PROVIDERS: Visit Provider Obstetrics & Gynecology
DX: R06.02 Shortness of breath (principal); R07.9 Chest pain, unspecified
CPT/HCPCS: 36415; 71045; 80053; 84550; 85025; 93005; 99199